=== PATIENT | female | born 1955 | race African-American/Black ===

== ENCOUNTER 2016-10-30 16:55 | Emergency (ER) | payer OTHER ==
[~2016-10-30] VITALS: Ht 165.1 cm; Wt 56.0 kg
[2016-10-30] MEDS ORDERED: FAMOTIDINE 20MG/2ML VIAL IV ONE (19:15)
[2016-10-30] MEDS ORDERED: DEXAMETHASONE 10MG/ML 1ML VIAL IV ONE (19:15)
[2016-10-30] MEDS ORDERED: DIPHENHYDRAMINE 50MG/ML VIAL IV ONE (19:15)
[2016-10-30 19:20] LABS: BASOPHILS % 0.4 % (0.0-2.0); HEMATOCRIT. 37.4 % (36.0-48.0); HEMOGLOBIN. 12.7 g/dL (12.0-16.0); LYMPHOCYTES % 12.5 % (20.0-50.0); MEAN CORPUSCULAR HGB CONC 33.9 g/dL (31.0-37.0); MEAN CORPUSCULAR VOLUME 88.2 fL (81.0-99.0); MEAN PLATELET VOLUME 7.7 fl (7.4-10.4); MONOCYTES % 7.6 % (2.0-8.0); NEUTROPHILS % 73.5 % (40.0-76.0); PLATELET 262 x1000/uL (130-400); RED BLOOD CELL COUNT 4.24 mill/uL (4.2-5.4); RED CELL DISTRIBUTION WIDTH 14.7 % (11.6-14.6); WHITE BLOOD COUNT 11.2 x1000/uL (4.5-11.0)
[2016-10-30 19:38] LABS: ALANINE AMINOTRANSFERASE 16 IU/L (13-61); ALBUMIN 4.2 g/dL (3.4-5.0); ANION GAP 14; CALCIUM 9.3 mg/dL (8.5-10.1); CARBON DIOXIDE 25 mEq/L (21-32); CHLORIDE 103 mEq/L (98-107); INDEX HEMOLYSI 1 (1-3); INDEX ICTERIC 1 (1-4); INDEX LIPEMIC 1 (1-3); TROPONIN I < 0.02 ng/mL (0.00-0.04); UREA NITROGEN BLOOD 15 mg/dL (7-21); eGFR > 60 mL/min (>60)
[2016-10-30 21:30] VITALS: BP 174/95
== END 2016-10-30 22:50 | disposition home or self-care (01) ==
LOC: ER 20:16
DX: T78.40XA Allergy, unspecified, initial encounter (principal); R07.9 Chest pain, unspecified; I10 Essential (primary) hypertension; E78.00 Pure hypercholesterolemia, unspecified; F17.200 Nicotine dependence, unspecified, uncomplicated
CPT/HCPCS: 36415; 71010; 80053; 84484; 85025; 93005; 96374; 96375; 99285; J1100; J1200; J3490; Z7610

== ENCOUNTER 2017-07-22 23:37 | Emergency (ER) | payer OTHER ==
[~2017-07-22] VITALS: Ht 165.1 cm; Wt 64.0 kg
[2017-07-23] MEDS ORDERED: NITR0.4T49 SL
[2017-07-23] MEDS ORDERED: LORA10TA7 PO
[2017-07-23] MEDS ORDERED: HYDR25TA PO (00:01)
[2017-07-23] MEDS ORDERED: DICL75TA5 PO (00:01)
[2017-07-23] MEDS ORDERED: TRAZ-129 PO (00:02)
[2017-07-23] MEDS ORDERED: LOVA20TA2 PO (00:02)
[2017-07-23] MEDS ORDERED: ATEN100T PO (00:02)
[2017-07-23] MEDS ORDERED: ASPI-1159 PO (00:03)
[2017-07-23] MEDS ORDERED: P20 PO (00:03)
[2017-07-23] MEDS ORDERED: IBUPROFEN 600MG TABLET PO ONE (08:30)
[2017-07-23 08:56] VITALS: BP 137/63
== END 2017-07-23 09:03 | disposition home or self-care (01) ==
LOC: ER 23:37
DX: J02.9 Acute pharyngitis, unspecified (principal); R05 Cough; F17.200 Nicotine dependence, unspecified, uncomplicated; E78.00 Pure hypercholesterolemia, unspecified; I10 Essential (primary) hypertension; Z79.82 Long term (current) use of aspirin; Z96.659 Presence of unspecified artificial knee joint
CPT/HCPCS: 71045; 87070; 87430; 87804; 99285

== ENCOUNTER 2017-11-12 18:57 | Emergency (ER) | payer OTHER ==
[~2017-11-12] VITALS: Ht 162.6 cm; Wt 63.0 kg
[~2017-11-12 18:57] MED LIST: ASPI-1159 PO; ATEN100T PO; DICL75TA5 PO; HYDR25TA PO; LORA10TA7 PO; LOVA20TA2 PO; NITR0.4T49 SL; P20 PO; TRAZ-129 PO
[2017-11-12] MEDS ORDERED: ACETAMINOPHEN 325MG TABLET PO ONE (19:45)
[2017-11-12 20:21] LABS: CLARITY URINE CLEAR (CLEAR); COLOR URINE YELLOW (YELLOW); KETONES URINE NEGATIVE (NEGATIVE); LEUKOCYTE ESTERASE URINE NEGATIVE (NEGATIVE); NITRITE URINE NEGATIVE (NEGATIVE); OCCULT BLOOD URINE NEGATIVE (NEGATIVE); PH URINE 5.5 (4.5-8.0); PROTEIN URINE NEGATIVE (NEGATIVE); SPECIFIC GRAVITY URINE 1.007 (1.005-1.030); UROBILINOGEN URINE 0.2 E.U./dL (0.2-1.0)
[2017-11-12 22:26] VITALS: BP 147/86
== END 2017-11-12 22:28 | disposition home or self-care (01) ==
LOC: ER 19:38
DX: M54.89 Other dorsalgia (principal); I10 Essential (primary) hypertension; E78.00 Pure hypercholesterolemia, unspecified; F17.200 Nicotine dependence, unspecified, uncomplicated; Z79.82 Long term (current) use of aspirin
CPT/HCPCS: 71045; 81003; 99285

== ENCOUNTER 2017-12-22 20:32 | Emergency (ER) | payer OTHER ==
[~2017-12-22] VITALS: Ht 165.1 cm; Wt 64.0 kg
[~2017-12-22 20:32] MED LIST changes: +BRIM10DR2 EACHEYE; +LATA2.5D2 EACHEYE
[2017-12-23 04:35] VITALS: BP 140/72
== END 2017-12-23 04:45 | disposition home or self-care (01) ==
LOC: ER 20:32
DX: L02.212 Cutaneous abscess of back [any part, except buttock and flank] (principal); E78.00 Pure hypercholesterolemia, unspecified; I10 Essential (primary) hypertension; Z79.82 Long term (current) use of aspirin
CPT/HCPCS: 99283

== ENCOUNTER 2017-12-29 13:22 | Emergency (ER) | payer OTHER ==
[~2017-12-29] VITALS: Ht 162.6 cm; Wt 58.0 kg
[2017-12-29] MEDS ORDERED: HYDROCODONE/ACETAMINOPHEN 5/325MG TABLET PO ONE (14:45)
[2017-12-29 15:30] VITALS: BP 140/75
== END 2017-12-29 15:34 | disposition home or self-care (01) ==
LOC: ER 15:25
DX: L02.212 Cutaneous abscess of back [any part, except buttock and flank] (principal); F17.210 Nicotine dependence, cigarettes, uncomplicated; E78.00 Pure hypercholesterolemia, unspecified; I10 Essential (primary) hypertension; Z71.6 Tobacco abuse counseling
CPT/HCPCS: 10060; 87070; 87205; 99284; 99406

== ENCOUNTER 2018-03-29 18:46 | Emergency (ER) | payer OTHER ==
[~2018-03-29] VITALS: Ht 157.5 cm; Wt 60.0 kg
[~2018-03-29 18:46] MED LIST changes: -TRAZ-129 PO; +TRAZ-212 PO
[2018-03-29 18:57] VITALS: BP 161/83
== END 2018-03-29 22:40 | disposition left against medical advice (07) ==
LOC: ER 18:46
DX: Z53.21 Procedure and treatment not carried out due to patient leaving prior to being seen by health care provider (principal)

== ENCOUNTER 2018-08-24 18:17 | Emergency (ER) | payer OTHER ==
[~2018-08-24] VITALS: Ht 165.1 cm; Wt 64.0 kg
[2018-08-24 20:34] VITALS: BP 170/78
== END 2018-08-24 21:29 | disposition left against medical advice (07) ==
LOC: ER 18:17
DX: M54.2 Cervicalgia (principal); Z53.21 Procedure and treatment not carried out due to patient leaving prior to being seen by health care provider

== ENCOUNTER 2019-02-14 08:17 | Emergency (ER) | payer MEDICAID, OTHER ==
[~2019-02-14] VITALS: Ht 154.9 cm; Wt 60.0 kg
[~2019-02-14 08:17] MED LIST changes: -ASPI-1159 PO; +ASPI-1393 PO; -TRAZ-212 PO; +TRAZ-251 PO
[2019-02-14] MEDS ORDERED: KETOROLAC 30MG/ML VIAL IV STA (09:22)
[2019-02-14] MEDS ORDERED: SODIUM CHLORIDE 0.9% 1,000 ML IV ONE (09:22)
[2019-02-14 09:45] LABS: BASOPHILS % 0.8 % (0.0-2.0); EOSINOPHILS % 2.8 % (0.0-5.0); HEMATOCRIT. 36.1 % (36.0-48.0); HEMOGLOBIN. 12.4 g/dL (12.0-16.0); LYMPHOCYTES % 22.2 % (20.0-50.0); MEAN CORPUSCULAR HEMOGLOBIN 31.8 pg (28.0-32.0); MEAN CORPUSCULAR VOLUME 92.3 fL (81.0-99.0); MEAN PLATELET VOLUME 7.4 fl (7.4-10.4); MONOCYTES % 7.1 % (2.0-8.0); NEUTROPHILS % 67.1 % (40.0-76.0); PLATELET 388 x1000/uL (130-400); RED BLOOD CELL COUNT 3.92 mill/uL (4.2-5.4); RED CELL DISTRIBUTION WIDTH 15.4 % (11.6-14.6)
[2019-02-14 09:48] LABS: CHLORIDE 107 mEq/L (98-107)
[2019-02-14] MEDS ORDERED: ACETAMINOPHEN WITH CODEINE 300/30MG TABLET PO ONE (12:15)
[2019-02-14 13:03] VITALS: BP 158/79
== END 2019-02-14 13:33 | disposition home or self-care (01) ==
LOC: ER 08:17
DX: R51 Headache (principal); M79.18 Myalgia, other site; I10 Essential (primary) hypertension; F17.210 Nicotine dependence, cigarettes, uncomplicated; F12.10 Cannabis abuse, uncomplicated; Z98.890 Other specified postprocedural states
CPT/HCPCS: 36415; 70450; 71045; 80053; 85025; 93005; 96374; 99284; J1885; J7030